=== PATIENT | male | born 1960 | race American Indian/Alaskan Native ===

== ENCOUNTER 2022-02-07 09:31 | Emergency (ER) | payer SELFPAY ==
--- NOTE | 2022-02-07 10:33 | Emergency Department Report ---
- General Chief Complaint: Skin/Abscess/Foreign Body Stated Complaint: LUMP ON SIDE FOREHEAD Time Seen by Provider: 02/07/22 10:24 Source: patient Mode of arrival: Ambulatory Limitations: No Limitations - History of Present Illness Initial Comments: CC: felicia HPI: This is a 61 yo male with hx of HTN who presents with abscess on his face. The abscess is located on the left jew. No trauma. NO known insect bite. Last year, he was treated for an abscess on his back. He has been noncompliant with blood pressure medication for over one year. No pain. Small in size. NO drainage. Gradual onset 5 days. Mildly tender to touch. -: Gradual, days(s) (5 days) Location: face Place: home Context: fall, other (no injury) - Related Data Previous Rx's Medication Instructions Recorded Last Taken Type Sulfamethoxazole/Trimethoprim 1 each PO BID 10 Days #20 02/07/22 Unknown Rx [Bactrim DS TAB] Valsartan 80 mg PO DAILY 90 Days #90 02/07/22 Unknown Rx amLODIPine 10 mg PO DAILY 90 Days #90 tab 02/07/22 Unknown Rx cephALEXin [Keflex] 500 mg PO TID 10 Days #30 cap 02/07/22 Unknown Rx ED Review of Systems ROS: Stated complaint: LUMP ON SIDE FOREHEAD Other details as noted in HPI Comment: All other systems reviewed and negative Constitutional: denies: chills, fever, malaise Respiratory: denies: cough, shortness of breath Cardiovascular: denies: chest pain Gastrointestinal: denies: abdominal pain Skin: rash, lesions ED Past Medical Hx - Past Medical History Previous Medical History?: Yes Hx Hypertension: Yes - Surgical History Past Surgical History?: No - Family History Family history: hypertension - Social History Smoking Status: Current Every Day Smoker Substance Use Type: None - Medications Home Medications: Home Medications Medication Instructions Recorded Confirmed Last Taken Type Sulfamethoxazole/Trimethoprim 1 each PO BID 10 Days #20 02/07/22 Unknown Rx [Bactrim DS TAB] Valsartan 80 mg PO DAILY 90 Days #90 02/07/22 Unknown Rx amLODIPine 10 mg PO DAILY 90 Days #90 tab 02/07/22 Unknown Rx cephALEXin [Keflex] 500 mg PO TID 10 Days #30 cap 02/07/22 Unknown Rx ED Physical Exam - General Limitations: No Limitations General appearance: alert, in no apparent distress, other (well-appearing no acute distress) - Head Head exam: Present: atraumatic, normocephalic, other (3 cm abscess fluctuance left jew) - Eye Eye exam: Present: normal appearance - ENT ENT exam: Present: mucous membranes moist - Neck Neck exam: Present: normal inspection - Respiratory Respiratory exam: Present: normal lung sounds bilaterally. Absent: respiratory distress - Cardiovascular Cardiovascular Exam: Present: regular rate, normal rhythm. Absent: systolic murmur, diastolic murmur, rubs, gallop - GI/Abdominal GI/Abdominal exam: Present: soft, normal bowel sounds. Absent: tenderness, guarding, rebound - Rectal Rectal exam: Present: deferred - Extremities Exam Extremities exam: Present: normal inspection - Neurological Exam Neurological exam: Present: alert, oriented X3 - Psychiatric Psychiatric exam: Present: normal affect, normal mood - Skin Skin exam: Present: warm, dry, intact, normal color. Absent: rash ED Course Vital Signs 02/07/22 02/07/22 02/07/22 10:09 10:34 10:46 Temperature 98.4 F Pulse Rate 98 H 94 H Respiratory 18 17 Rate Blood Pressure 234/147 213/140 [Right] O2 Sat by Pulse 98 99 99 Oximetry ED Medical Decision Making - Medical Decision Making 1. skin abscess left face: keflex bactrim prescribed, recommended warm compress 2. Hypertensive urgency asymptomatic, strongly recommended medication compliance, I gave verbal education regarding the complication of untreated HTN I provided 90 day prescription of amlodipine and valsartan. Critical care attestation.: If time is entered above; I have spent that time in minutes in the direct care of this critically ill patient, excluding procedure time. ED Disposition Clinical Impression: Abscess of face, Hypertensive urgency Disposition: 01 HOME / SELF CARE / HOMELESS Is pt being admited?: No Does the pt Need Aspirin: No Condition: Stable Instructions: Skin Abscess, Hypertension, Adult, [id number] Prescriptions: amLODIPine 10 mg PO DAILY 90 Days #90 tab Sulfamethoxazole/Trimethoprim [Bactrim DS TAB] 1 each PO BID 10 Days #20 cephALEXin [Keflex] 500 mg PO TID 10 Days #30 cap Valsartan 80 mg PO DAILY 90 Days #90 Referrals: LEENA BURR MD [Staff Physician] - 3-5 Days
[2022-02-07 10:48] VITALS: BP 213/140
== END 2022-02-07 11:05 | disposition home or self-care (01) ==
LOC: ED 09:31
DX: L02.01 Cutaneous abscess of face (principal); I16.0 Hypertensive urgency; F17.200 Nicotine dependence, unspecified, uncomplicated
CPT/HCPCS: 99282